=== PATIENT | male | born 1995 | race Caucasian/White ===

== ENCOUNTER 2024-10-29 01:01 | Emergency (ER) | payer MEDICAID ==
[~2024-10-29] VITALS: Ht 180.3 cm; Wt 105.0 kg
[2024-10-29 01:22] VITALS: O2SAT 100
[2024-10-29] MEDS: KETOROLAC 15MG/ML VIAL IM ONE (02:30)
[2024-10-29] MEDS ORDERED: LIDO700A15 TP (04:07)
[2024-10-29] MEDS ORDERED: NAPR-1176 MT (04:07)
[2024-10-29] MEDS: KETOROLAC 15MG/ML VIAL IM NR (04:32)
[2024-10-29 04:36] VITALS: BP 127/80; PULSE 90; RESP 17; TEMP 36.7; O2SAT 100
[2024-10-29 04:44] LABS: EOSINOPHILS % 0.5 % (0.0-5.0); HEMATOCRIT. 45.1 % (42.0-52.0); HEMOGLOBIN. 14.8 g/dL (14.0-18.0); LYMPHOCYTES % 30.1 % (20.0-50.0); MEAN CORPUSCULAR HEMOGLOBIN 29.8 pg (28.0-32.0); MEAN CORPUSCULAR HGB CONC 32.9 g/dL (31.0-37.0); MEAN CORPUSCULAR VOLUME 90.5 fL (80.0-94.0); MEAN PLATELET VOLUME 7.8 fl (7.4-10.4); MONOCYTES % 7.1 % (2.0-8.0); NEUTROPHILS % 61.3 % (40.0-76.0); PLATELET 347 x1000/uL (130-400); RED BLOOD CELL COUNT 4.98 mill/uL (4.7-6.1); RED CELL DISTRIBUTION WIDTH 13.5 % (11.6-14.6); WHITE BLOOD COUNT 10.3 x1000/uL (4.5-11.0)
[2024-10-29 04:53] LABS: CHLORIDE 103 mEq/L (98-107); POTASSIUM 3.5 mEq/L (3.5-5.1); SODIUM 138 mEq/L (136-145)
[2024-10-29 04:54] LABS: CALCIUM 9.9 mg/dL (8.7-10.4); CARBON DIOXIDE 25 mEq/L (21-32)
[2024-10-29 04:59] LABS: GLUCOSE 102 mg/dL (70-105); UREA NITROGEN BLOOD 7 mg/dL (9-23)
== END 2024-10-29 04:37 | disposition home or self-care (01) ==
LOC: ER 01:01
DX: M25.561 Pain in right knee (principal); M19.90 Unspecified osteoarthritis, unspecified site; Z79.1 Long term (current) use of non-steroidal anti-inflammatories (NSAID)
CPT/HCPCS: 99284; 80048; 85025; 36415; 73562; 96372; J1885